=== PATIENT | female | born 1935 | race Caucasian/White ===

== ENCOUNTER 2018-09-29 12:26 | Emergency (ER) | payer MEDICARE ==
--- NOTE | 2018-09-29 14:05 | UC ---
Respiratory Complaint HPI - HPI Summary HPI Summary: sinus pain and fullness for 2 wks. Has tried otc meds but no relief. denies fever or tooth pain. - History of Current Complaint Chief Complaint: UCRespiratory Stated Complaint: SINUS ISSUE Time Seen by Provider: 09/29/18 13:43 Hx Obtained From: Patient Onset/Duration: Gradual Onset - 2 wks Pain Intensity: 0 Aggravating Factors: Nothing Alleviating Factors: Nothing Associated Signs And Symptoms: Negative: URI - Allergies/Home Medications Allergies/Adverse Reactions: Allergies Allergy/AdvReac Type Severity Reaction Status Date / Time No Known Allergies Allergy Verified 09/29/18 13:01 Home Medications: Home Medications Lisinopril/HCTZ 20/25(NF) [Zestoretic 20/25(NF)] 1 tab PO DAILY 09/29/18 [ History Confirmed 09/29/18] Pravastatin Sodium 1 tab PO DAILY 09/29/18 [History Confirmed 09/29/18] PMH/Surg Hx/FS Hx/Imm Hx Cardiovascular History: Cardiac Disease, Hypertension - Surgical History Surgical History: Yes Surgery Procedure, Year, and Place: hyster tonsils - Social History Alcohol Use: Occasionally Substance Use Type: None Smoking Status (MU): Never Smoked Tobacco Review of Systems All Other Systems Reviewed And Are Negative: Yes Constitutional: Negative: Fever Skin: Negative: Rash ENT: Positive: Sinus Congestion, Sinus Pain/Tenderness. Negative: Sore Throat, Ear Ache, Nasal Discharge, Other - denies tooth pain Respiratory: Positive: Negative Cardiovascular: Positive: Negative Neurological: Negative: Headache Physical Exam Triage Information Reviewed: Yes Appearance: Well-Appearing Vital Signs: Initial Vital Signs Temp 97.7 F 09/29/18 12:58 Pulse 84 09/29/18 12:58 Resp 16 09/29/18 12:58 BP 163/60 09/29/18 12:58 Pulse Ox 100 09/29/18 12:58 Vital Signs Reviewed: Yes Eyes: Positive: Conjunctiva Clear ENT: Positive: Pharynx normal, TMs normal, Uvula midline. Negative: Muffled voice, Dental tenderness, Sinus tenderness Neck: Positive: Supple, Nontender, No Lymphadenopathy Respiratory Exam: Normal Cardiovascular Exam: Normal Neurological: Positive: Alert Skin: Negative: Rashes Respiratory Course/Dx - Course Course Of Treatment: Sinusitis x2 wks. Vitals are stable. Exam unremarkable. Given duration reasonable to tx w/ antibx, pt. requested. Plan is to tx and if no improvement she will f/u w/ pcp. - Differential Dx/Diagnosis Differential Diagnosis/HQI/PQRI: Bronchitis, Sinusitis Provider Diagnosis: Sinusitis Discharge - Sign-Out/Discharge Documenting (check all that apply): Patient Departure All imaging exams completed and their final reports reviewed: No Studies - Discharge Plan Condition: Good Disposition: HOME Prescriptions: Amoxicillin/Clavulanate TAB* [Augmentin TAB 875*] 875 mg PO BID 7 Days #14 tab Patient Education Materials: Sinusitis (ED) Referrals: No Primary Care Phys,NOPCP [Primary Care Provider] - Additional Instructions: your blood pressure is elevated, please discuss with your main doctor. - Billing Disposition and Condition Condition: GOOD Disposition: Home
== END 2018-09-29 14:29 | disposition home or self-care (01) ==
LOC: UCEAST 12:26
DX: J32.9 Chronic sinusitis, unspecified (principal); I10 Essential (primary) hypertension
CPT/HCPCS: 99202; G0463